=== PATIENT | female | born 1955 | race Caucasian/White ===

== ENCOUNTER → 2018-03-18 | Outpatient (CLI) | payer BC ==
--- NOTE | 2018-03-18 22:26 | MR ---
EXAMINATION TYPE: MR lumbar spine wo con DATE OF EXAM: 03/18/2018 COMPARISON: NONE HISTORY: Low back pain per order. Back pain into right leg for 5 to 6 years per patient. TECHNIQUE: Multiplanar, multisequence imaging of the lumbar spine is performed without IV contrast. FINDINGS: Sagittal images of the lumbar spine show vertebral body heights and alignment to appear sat isfactory. Multilevel disc desiccation is present. There is multilevel disc space narrowing with rela tive sparing of L3-L4 level. Moderate disc space narrowing is noted L4-L5 and L5-S1 levels with vacuu m disc phenomenon at these levels. Multilevel small posterior disc herniations are seen on sagittal i mages There is heterogeneous Modic type II endplate changes anteriorly L4-L5 level with moderate ante rior spurring. There is mild to moderate multilevel anterior spurring noted. The conus medullaris is normal in position and signal ending mid L1 level. Axial images at the T12-L1 level shows mild broad-based disc bulge minimally effaces the anterior the david sac, bilateral neural foramina are patent. Axial images at the L1-L2 level shows mild broad-based disc bulge mildly effacing anterior thecal sac , bilateral neural foramina are patent. Axial images at the L2-L3 level shows moderate broad-based disc bulge effacing the anterior thecal sa c. There is mild facet degenerative changes and ligamentum flavum hypertrophy, there is asymmetric mi ld to moderate left and mild right-sided anterior inferior neural foraminal narrowing noted. Axial images at the L3-L4 level show moderate obstruction of changes limited with the clinical hypert rophy with [id number] broad disc bulge that has right lateral/foraminal disc protrusion compone nt. This effaces the anterior thecal sac. Right-sided neuroforamina is patent. Left side shows mild t o moderate anterior inferior neural foraminal narrowing. Some encroachment of the left L3 nerve is di fficult to exclude axial image 13. Axial images at the L4-L5 level moderate facet degenerative changes bilaterally. There is with modera te broad disc bulge identified. There is effacement of anterior thecal sac. There is moderate left an d mild right-sided neural foraminal narrowing noted. Axial images at the L5-S1 level shows [id number] broad disc bulge. Spinal canal is preserved. T here is mild left greater than right bilateral anterior inferior neural foraminal narrowing. No suspicious incidental retroperitoneal findings are seen. IMPRESSION: Multilevel degenerative changes in the lumbar spine as detailed above.
== END | disposition home or self-care (01) ==
LOC: RADMRIMAIN 16:42
PROVIDERS: ATTEND Psychiatry & Neurology Neurology
DX: M99.73 Connective tissue and disc stenosis of intervertebral foramina of lumbar region (principal); M48.061 Spinal stenosis, lumbar region without neurogenic claudication; M51.27 Other intervertebral disc displacement, lumbosacral region; M47.816 Spondylosis without myelopathy or radiculopathy, lumbar region
CPT/HCPCS: 72148

== ENCOUNTER 2019-02-14 10:53 | Emergency (ER) | payer BC ==
[2019-02-14 11:14] VITALS: RESP 18
[2019-02-14] MEDS ORDERED: MORPHINE SULFATE 4 MG/ML SYRINGE IM STA (11:50)
[2019-02-14] MEDS ORDERED: ORPHENADRINE 30 MG/ML 2 ML VIAL IM STA (11:50)
[2019-02-14] MEDS ORDERED: KETOROLAC 60 MG/2 ML VIAL IM STA (11:50)
--- NOTE | 2019-02-14 12:07 | ED ---
Back Pain HPI - General Chief Complaint: Back Pain/Injury Stated Complaint: back & leg pain Time Seen by Provider: 02/14/19 11:17 Source: patient, RN notes reviewed, old records reviewed Limitations: physical limitation - History of Present Illness Initial Comments: She is a 63-year-old female presents emergency department. She went lower back pain, and some pain shooting down her right leg for the past 5-6 weeks. She reports that she was told she had degenerative disc disease and was sent to see physical therapy. She's noticed for the past 5-6 weeks as reports no improv ement of her symptoms. Patient states that it felt that she is able to walk worsen on the bathroom today and perform her normal activities of daily living due to her back pain. Patient reports that she has had no changes in her urination or bowel habits. She denies any associated chest features breath nausea or vomiting. She states the pain has occasionally shoot down the right leg and sharp and stabbing in nature. She's been taking Motrin and Tylenol for pain relief. Patient states that she had a x-ray of her hips done a week ago which was negative for any acute process. Port improvement of her pain with leaning forward on her walker. - Related Data Home Medications Medication Instructions Recorded Confirmed Calcium Carbonate/Vitamin D3 1 tab PO DAILY 03/26/16 02/14/19 [Calcium 600-Vit D3 200 Tablet] Carvedilol 6.25 mg PO BID 03/26/16 02/14/19 Diclofenac Sodium [Voltaren] 75 mg PO BID 03/26/16 02/14/19 Furosemide 40 mg PO DAILY 03/26/16 02/14/19 Levothyroxine Sodium [Synthroid] 75 mcg PO DAILY 03/26/16 02/14/19 Multivitamins, Thera [Multivitamin 1 tab PO DAILY 03/26/16 02/14/19 (formulary)] Simvastatin 20 mg PO HS 03/26/16 02/14/19 Ergocalciferol [Vitamin D2] 50,000 unit PO SA 02/14/19 02/14/19 Gabapentin 1,200 mg PO TID 02/14/19 02/14/19 Keto Supplement 2 tab PO DAILY 02/14/19 02/14/19 Oxybutynin Xl [Ditropan Xl] 5 mg PO DAILY 02/14/19 02/14/19 Vitamin B Complex 1 cap PO DAILY 02/14/19 02/14/19 Previous Rx's Medication Instructions Recorded Cyclobenzaprine [Flexeril] 10 mg PO TID #12 tab 02/14/19 HYDROcodone/APAP 5-325MG [[place] 1 tab PO Q6HR PRN #10 tab 02/14/19 5-325] methylPREDNISolone Dose Pack 4 mg PO DIRECTED #21 package 02/14/19 [Medrol Dose Pack] Allergies Allergy/AdvReac Type Severity Reaction Status Date / Time No Known Allergies Allergy Verified 02/14/19 11:14 Review of Systems ROS Statement: Those systems with pertinent positive or pertinent negative responses have been documented in the HPI. ROS Other: All systems not noted in ROS Statement are negative. Past Medical History Past Medical History: Deep Vein Thrombosis (DVT), Hyperlipidemia, Hypertension, Osteoarthritis (OA), Thyroid Disorder Additional Past Medical History / Comment(s): 03-26-16 RT LEG DVT(HAD SX FOR TORN TENDONS 02-29-16 -LEG WAS CASTED UNTIL 03-26-16), NEUROPATHY. History of Any Multi-Drug Resistant Organisms: None Reported Past Surgical History: Orthopedic Surgery Additional Past Surgical History / Comment(s): RT LEG SX FOR TORN TENDONS Past Anesthesia/Blood Transfusion Reactions: No Reported Reaction Past Psychological History: No Psychological Hx Reported Smoking Status: Never smoker Past Alcohol Use History: None Reported Past Drug Use History: None Reported - Past Family History Mother Family Medical History: No Reported History Additional Family Medical History / Comment(s): MOM IS HEALTHY AT 87 YEARS OLD Father Family Medical History: Cancer Additional Family Medical History / Comment(s): LEUKEMIA General Exam - General Exam Comments Initial Comments: Over the be 63-year-old female. Laying in bed. Resting comfortably. Patient appears in no distress. Limitations: physical limitation Head exam: Present: atraumatic, normocephalic, normal inspection Eye exam: Present: normal appearance, PERRL, EOMI. Absent: scleral icterus, conjunctival injection, periorbital swelling ENT exam: Present: normal exam, mucous membranes moist Neck exam: Present: normal inspection. Absent: tenderness, meningismus, lymphadenopathy Respiratory exam: Present: normal lung sounds bilaterally. Absent: respiratory distress, wheezes, rales, rhonchi, stridor Cardiovascular Exam: Present: regular rate, normal rhythm, normal heart sounds. Absent: systolic murmur, diastolic murmur, rubs, gallop, clicks GI/Abdominal exam: Present: soft, normal bowel sounds. Absent: distended, guarding, rebound, rigid Extremities exam: Present: normal inspection, full ROM, normal capillary refill. Absent: tenderness, pedal edema, joint swelling, calf tenderness Back exam: Present: normal inspection, tenderness (S her lumbar spine and right) Neurological exam: Present: alert, oriented X3, CN II-XII intact Psychiatric exam: Present: normal affect, normal mood Course Vital Signs 02/14/19 02/14/19 11:08 14:29 Temperature 98.5 F 98 F Pulse Rate 56 L 61 Respiratory 18 18 Rate Blood Pressure 152/78 152/68 O2 Sat by Pulse 97 98 Oximetry Medical Decision Making - Medical Decision Making 63-year-old female presents with progressing back pain over the past 5-6 weeks. She said x-rays of her hip and pelvis and her chiropractor with no significant changes in his been to physical therapy. Today she felt that she had worsening pain radiating down her right leg was sitting on the toilet. This time Patient does have some lumbar spinal tenderness. She has no saddle anesthesias. She denies any other red flag symptoms. CT lumbar spine was performed. There is evidence of a T12 compression fracture and likely subacute with no surrounding edema. Patient was informed of this discussion is follow-up with her PCP. She is severely obese, I discussed the possibility of a back brace. She states that she does have one at this time. Discharge Patient with a short course of a type and her medicine and pain medicines that should follow-up with orthopedic health care law specialist. Patient is agreeable to plan will comply. Return parameters were discussed. - Radiology Data Radiology results: report reviewed Multilevel degenerative disease were at L4-L5 and T11-T12. Mild superior endplate compression deformity of T12 is intermittent but new from 11/16/2017. Correlate for focal pain level. Or subacute or chronic injuries. Given lack of strong soft tissue hematoma. Hypertrophic facet arthropathy is admitted to lumbar spine without malalignment. Vertebral moderate neuroforaminal stenosis outline as above. Moderate to severe in the right L4-L5 and L5-S1. Disposition Clinical Impression: Wedge compression fracture of T12 vertebra, DDD (degenerative disc disease), Lumbar radiculopathy Disposition: HOME SELF-CARE Condition: Good Instructions (If sedation given, give patient instructions): Acute Low Back Pain (ED) Additional Instructions: Please use medication as discussed. Please follow up with family doctor if symptoms have not improved over the next two days. Please return to the emergency room if your symptoms increase or worsen or for any other concerns. Prescriptions: Cyclobenzaprine [Flexeril] 10 mg PO TID #12 tab methylPREDNISolone Dose Pack [Medrol Dose Pack] 4 mg PO DIRECTED #21 package HYDROcodone/APAP 5-325MG [[place] 5-325] 1 tab PO Q6HR PRN #10 tab PRN Reason: Pain Is patient prescribed a controlled substance at d/c from ED?: Yes If prescribed controlled substance>3 days was MAPS reviewed?: Prescribed <3 Days If opioid is for acute pain is fill amount 7 days or less?: Yes If Rx opioid, was Start Talking consent form obtained?: Yes Referrals: Maged Montanez MD [Primary Care Provider] - 1-2 days Fang Hanna DO [Doctor of Osteopathic Medicine] - 1-2 days Time of Disposition: 13:55
--- NOTE | 2019-02-14 13:18 | CT ---
EXAMINATION TYPE: CT lumbar spine wo con DATE OF EXAM: 02/14/2019 COMPARISON: Correlation MRI 03/18/2018 HISTORY: 63-year-old female Low back pain with bilateral leg pain and weakness TECHNIQUE: Contiguous axial scanning of the lumbar spine without IV contrast. Coronal and sagittal re constructions performed. CT DLP: 1700.4 mGycm Automated exposure control for dose reduction was used. FINDINGS: Hilar splenule. Parapelvic cysts left kidney and nonobstructive left renal calculi measuring up to 3 mm. Moderate to severe degenerative disc disease at L4-L5 and moderate to advanced at T11-T12. Superior endplate irregularity of T12 new from 03/18/2018 as is the moderate to advanced degenerative disc disease at this level. Mild to moderate disc height loss. Levels with hypertrophic facet arthropathy mid to lower lumbar spi ne. Alignment is maintained. Disc bulges noted at multiple levels but not characterized as well as on MRI due to patient large bod y habitus and excessive noise artifact. On the left, there is moderate bony neuroforaminal narrowing from L2 through S1 levels. On the right, moderate to severe bony neural foraminal narrowing at L4-L5 and L5-S1, mild to moderate at L2-L3, and mild at L3-L4. IMPRESSION: 1. MODERATE MULTILEVEL DEGENERATIVE DISC DISEASE, MORE MODERATELY ADVANCED AT L4-L5 AND T11-T12, PROG RESSED FROM 03/18/2018. 2. MILD SUPERIOR ENDPLATE COMPRESSION DEFORMITY OF T12 IS AGE INDETERMINATE BUT NEW FROM 11/16/2017. C ORRELATE FOR ANY FOCAL PAIN AT THIS LEVEL. MORE SUBACUTE OR CHRONIC INJURY IS FAVORED GIVEN THE LACK OF SURROUNDING SOFT TISSUE SWELLING/HEMATOMA. 3. HYPERTROPHIC FACET ARTHROPATHY MID TO LOWER LUMBAR SPINE WITHOUT MALALIGNMENT. VERTEBRAL MODERATE NEUROFORAMINAL STENOSES OUTLINED ABOVE, MORE MODERATE TO SEVERE ON THE RIGHT AT L4-L5 AND L5-S1.
[2019-02-14 14:31] VITALS: BP 152/68; PULSE 61; TEMP 98
== END 2019-02-14 14:29 | disposition home or self-care (01) ==
LOC: EC 10:53
DX: S22.080A Wedge compression fracture of T11-T12 vertebra, initial encounter for closed fracture (principal); M51.16 Intervertebral disc disorders with radiculopathy, lumbar region; M51.34 Other intervertebral disc degeneration, thoracic region; E78.5 Hyperlipidemia, unspecified; I10 Essential (primary) hypertension; M19.90 Unspecified osteoarthritis, unspecified site; E07.9 Disorder of thyroid, unspecified; Z86.718 Personal history of other venous thrombosis and embolism; Z79.1 Long term (current) use of non-steroidal anti-inflammatories (NSAID); Z79.890 Hormone replacement therapy; Z79.899 Other long term (current) drug therapy
CPT/HCPCS: 72131; 99284; 96372 ×3; J2270; J2360; J1885